=== PATIENT | female | born 1960 | race Caucasian/White ===

== ENCOUNTER 2016-06-18 10:50 | Observation (INO) | payer OTHER ==
[~2016-06-18] VITALS: Ht 177.8 cm; Wt 99.0 kg
[~2016-06-18 10:50] MED LIST: ASPI-484 PO; ATEN1TAB4 PO; ATEN25TA PO; ESTR2TAB PO; IBUP800T PO; PROG200C6 PO; SULF1TAB24 PO; THYR60TA PO
[2016-06-18] MEDS ORDERED: SODIUM CHLORIDE ONE (12:53)
[2016-06-18] MEDS ORDERED: POTASSIUM CHLORIDE ONE (12:53)
--- NOTE | 2016-06-18 13:00 | NUR ---
REPORT RECEIVED REPORT FROM DANISH. PT IN ROOM, SITTING IN BED AWAKE AND ALERT. ORIENTED TO ROOM AND TO UNIT. PT STATES PAIN IS AT A 0 WHEN LYING STILL BUT INCREASES TO A 10 WHEN MOVING. PAIN REPORTED GENERALIZED. FLUIDS OFFERED. VITAL SIGNS OBTAINED. EDUCATED ON USE OF CALL LIGHT. PT VERBALIZED UNDERSTANDING. WILL CONTINUE TO MONITOR. BED IN LOW POSITION, BRAKES ON, SIDE RAILS UP X2, CALL LIGHT WITHIN REACH.
[2016-06-18 13:10] VITALS: BP 139/88
[2016-06-18] MEDS ORDERED: [UNRECOGNIZED DRUG - OTHER] IV SCH (13:30)
[2016-06-18] MEDS: POTASSIUM CHLORIDE IV SCH (14:00)
[2016-06-18] MEDS: SODIUM CHLORIDE IV SCH (14:00)
[2016-06-18 14:04] LABS: BASOPHIL # 0.1 10^3/uL (0.0-0.1); BASOPHIL % 0.5 % (0.0-0.2); EOSINOPHIL # 0.3 10^3/uL (0.0-0.2); EOSINOPHIL % 3.2 % (0.0-5.0); HEMATOCRIT 41.2 % (36.0-46.0); HEMOGLOBIN 13.7 g/dL (12.0-15.0); LYMPHOCYTES # 2.5 10^3/uL (1.0-4.8); LYMPHOCYTES % 26.2 % (24.0-44.0); MEAN CELL HGB CONCENTRATION 33.3 g/dL (33-37); MEAN CORP VOLUME 90.4 fL (78-100); MONOCYTES # 0.6 10^3/uL (0.3-0.8); MONOCYTES % 6.3 % (5.0-12.0); NEUTROPHIL # 6.1 10^3/uL (1.8-7.7); NEUTROPHILS % 63.6 % (41.0-85.0); PLATELET COUNT 250 10^3/uL (150-400); RED BLOOD CELL 4.56 10^6/uL (4.00-5.20); RED CELL DISTRIBUTION WIDTH 13.5 % (11.5-14.5); WHITE BLOOD CELL 9.5 10^3/uL (4.5-11.0)
[2016-06-18 15:08] LABS: CREATINE KINASE MB 0.3 ng/mL (0.5-3.6)
[2016-06-18 15:53] LABS: ERYTHROCYTE SEDIMENTATION RATE 60 mm/hr (0-20)
--- NOTE | 2016-06-18 18:55 | NUR ---
Report Received report from Eriberto Ly RN
[2016-06-18 20:00] VITALS: BP 141/88
--- NOTE | 2016-06-18 21:42 | HPH ---
ADMIT DATE: 06/18/2016 The patient is being placed under observation to Med-Surg. PRIMARY CARE PHYSICIAN: June Quiñones MD The patient is being placed under observation to Med-Surg. ADMITTING DIAGNOSES: Polyarthritis with malaise and fatigue with hypothyroidism. CHIEF COMPLAINT: "I'm very sore and not feeling well." HISTORY OF PRESENT ILLNESS: The patient is a very pleasant 55-year-old female who has been feeling ill since February which is 4 months ago. She states that this all started with her left hip being inflamed and hurting. She could not bear weight, which turned out to have significant fluid where Dr. Longoria had to go and remove the lipoma and she had been on vancomycin treatments for a possible infection even though there were no cultures to prove an infection. She started using crutches for this and she started to have bilateral shoulder pains that were significant and then this progressed to bilateral knee pain. She had blood work done that showed her inflammatory markers were very elevated. Her sed rate was up to 130 and she has had radiology do a guided fluoroscopic procedure to drain her hip before within the past 2 months. With her polyarthritis going on and the migration in nature we are concerned about some kind of rheumatic condition. She had blood work done. Her rheumatoid factor was negative, but her JACQUI was equivocal at that time. She states that she still has significant hip pain with shoulder pain and knee pain. When asked about fever she states that her baseline temperature is 97, but she has been running 98.9 lately. She has been having chills and again she has been having significant joint aches and not feeling well. She states that she had some NSAIDs in the past and pain pills for which she cannot take anymore since she starts to have chest pains with them. She denies any abdominal pains currently, no chest pains currently, no shortness of breath, no diarrhea, no constipation, no lethargy, no syncope reported. PAST MEDICAL HISTORY: Significant for hypothyroidism, postmenopausal and hypertension. She had rheumatic problem, some type of rheumatic strep infections when she was young that were inadequately treated what I was told. ALLERGIES: CODEINE, PENICILLIN, MORPHINE, HYDROCODONE, CRESTOR, TRAMADOL AND VANCOMYCIN. SOCIAL HISTORY: Noncontributory. FAMILY HISTORY: Asked and noncontributory for this admission. MEDICATIONS: She is on include atenolol/HCT 100/25 daily, estradiol 2 mg daily, progesterone 200 mg at night and Walden Thyroid 60 mg a day. PHYSICAL EXAMINATION: VITAL SIGNS: On admission, temperature is 98.9, pulse rate 67, respirations 16 and blood pressure 139/88, O2 sats 98%. My physical exam is as follows: GENERAL: When I saw her she appeared tired. Oropharynx was clear. No ulcers noted. NECK: Supple, no JVD, no bruits. HEART: S1, S2 audible. Not tachycardic. LUNGS: Clear bilaterally. ABDOMEN: Good bowel sounds, soft abdomen, no rebound or guarding. EXTREMITIES: She had no significant joint effusions in her shoulders or knees, but she was tender when she bears weight on them. LABORATORY DATA: Labs were drawn. Her CBC was normal. Chemistry panel had a CK of 28, troponin was elevated at 0.07, but she is asymptomatic. CRP was 3.24. ProBNP was 89. ASSESSMENT: We have this female with polyarthritis that are migratory in nature with malaise and fatigue and elevated troponin. I will go ahead and draw serial cardiac enzymes on her. Her medart operator is Dr. Ruiz and she states that she has had stress test and heart caths by him before and the heart caths were normal. I will go ahead and get a bone scan on her tomorrow morning. I would start her on IV Solu-Medrol tonight with some Protonix and then follow her clinical course in the hospital. She will most probably need Rheumatology referral after this. June Quiñones MD DR: MICAH/charly JOB# [id number]
[2016-06-18] MEDS: SOLU-MEDROL IV SCH (22:48)
[2016-06-19] VITALS (7 sets, daily range): BP systolic 117–134; BP diastolic 74–88
[2016-06-19] MEDS: SODIUM CHLORIDE IV SCH ×2 (02:16→18:36)
[2016-06-19] MEDS: POTASSIUM CHLORIDE IV SCH ×2 (02:16→18:36)
[2016-06-19 05:38] LABS: BILIRUBIN,URINE NEGATIVE (NEGATIVE); PH,URINE 7 (5.0-6.0); UROBILINOGEN,URINE NORMAL (NEGATIVE)
[2016-06-19 05:45] LABS: APPEARANCE,URINE CLEAR (CLEAR); UA COLOR YELLOW (YELLOW)
[2016-06-19] MEDS: SOLU-MEDROL IV SCH ×3 (06:38→20:53)
--- NOTE | 2016-06-19 06:45 | NUR ---
Report Received report and assumed care of pt
--- NOTE | 2016-06-19 06:58 | NUR ---
Report Report given to Marcela Layton RN
[2016-06-19] MEDS ORDERED: ESTRACE PO SCH ×2 (09:00→21:00)
[2016-06-19] MEDS ORDERED: CHLORTHALIDONE PO SCH (09:00)
[2016-06-19] MEDS ORDERED: TENORMIN PO SCH (09:00)
[2016-06-19] MEDS ORDERED: ARMOUR THYROID PO SCH (09:00)
[2016-06-19] MEDS ORDERED: PROTONIX IV IV SCH (09:00)
--- NOTE | 2016-06-19 11:09 | NUR ---
DISCHARGE PLANNING: SS VISITED WITH PT CONCERNING DISCHARGE PLANNING NEEDS. PT LIVES HOME WITH HER . PT IS VERY INDEPENDENT AND DOES NOT USE ANY DME, BUT HAS IT IN THE HOME IF SHE NEEDS IT. NO FURTHER NEEDS WERE NOTED OR IDENTIFIED AT THIS TIME. PT SAFETY HANDOUT ADDRESSED, NO QUESTIONS ASKED, UNDERSTANDING VERBALIZED. SS TO CONTINUE TO FOLLOW AND MONITOR DISCHARGE PLANNING NEEDS.
[2016-06-19] MEDS ORDERED: PRED20TA PO (19:56)
--- NOTE | 2016-06-20 03:23 | DSH ---
DATE OF DISCHARGE: 06/19/2016 ADMITTING DIAGNOSES: Polyarthritis with malaise and fatigue, suspect serum negative rheumatoid arthritis. DISCHARGE DIAGNOSES: Polyarthritis with malaise and fatigue. HOSPITAL COURSE: The patient is a 55-year-old female who has had poly joint problems for the past 4 months now. She has been worked up and had injections and labs drawn. She does describe a polyarthritis that is migratory in nature and she could barely walk when she came into my clinic due to her pains in her hips, knees and shoulders. I went ahead and put her in the hospital and started her on Solu-Medrol 60 mg q.8 hours. Within 3 doses her clinical condition turned around, she is walking, she is feeling a lot better. Her polyarthritis is definitely improved and vital signs have been stable. Her rheumatoid factor was negative. So, I do suspect may be she has seronegative rheumatoid arthritis versus some type of connective tissue disorder, but at this time, she feels good. She definitely feels back to baseline. I will go ahead and put her on prednisone 40 mg a day for 4-5 more days and continue her home medications, home diet and home activity level and we will try to get her in to see a accounting teacher to evaluate her for the possibility of underlying connective tissue disorders and she is to follow up with me next week. My office staff will make the appointment. June Quiñones MD DR: MICAH/charly JOB# [id number]
--- NOTE | 2016-06-20 18:17 | DIREP ---
PROCEDURE:NM BONE SCAN TOTAL BODY/KIKE COMPARISON:[facility], , CHEST 1 VIEW, 04/18/2013, 09:34 PM. [facility], , XRAY PELVIS 1-2 VWS, 04/06/2015, 11:39 AM. [facility], , XRAY SPINE LUMBAR 2-3 VWS, 04/06/2015, 11:44 AM. [facility], US, SOFT TISSUE, 01/22/2016, 09:09 AM. [facility], , XRAY HIP MIN 2VW-RT, 03/26/2016, 12:28 PM. [facility], , XRAY HIP MIN 2VW-LT, 03/26/2016, 12:28 PM. INDICATIONS:polyarthralgia (hips,knees,shoulders) TECHNIQUE:After obtaining the patient's consent, Technetium 99m MDP was injected intravenously. Anterior and posterior whole body planar images were obtained approximately 5.5 hours later. PHARMACEUTICAL:Technetium 99m MDP, 26.9 mCi. FINDINGS: Distribution of radiotracer between the soft tissues and skeleton is within normal limits. Renal excretion appears symmetric. The mild/moderate degenerative activity seen involving the bilateral shoulders (right greater than left) bilateral sternoclavicular joints, bilateral knees, and bilateral tarsometatarsal joints. Mild degenerative activity is seen involving the thoracic and lumbar spine, bilateral hips, bilateral hands and wrists, and bilateral ankles. A small midline photopenic defect is seen within the lower lumbar spine on the posterior planar images, in keeping with multilevel lower laminectomy. No scintigraphic evidence of fracture or neoplasm. CONCLUSION: Scattered degenerative activity, most prominently involving the bilateral shoulders, sternoclavicular joints, knees, and tarsometatarsal joints. Dictated by: Carter Lomeli M.D. On 06/20/2016 at 06:11 PM
== END 2016-06-19 21:15 | disposition home or self-care (01) ==
LOC: MS 10:50
PROVIDERS: ADMIT Pediatrics; ATTEND Pediatrics
DX: M13.0 Polyarthritis, unspecified (principal); E03.9 Hypothyroidism, unspecified; R50.9 Fever, unspecified; I10 Essential (primary) hypertension; R74.8 Abnormal levels of other serum enzymes; R53.83 Other fatigue; R53.81 Other malaise; Z79.899 Other long term (current) drug therapy; Z98.890 Other specified postprocedural states
CPT/HCPCS: 36415 ×2; 78306; 82550; 83880; 84484 ×3; 85025; 85651; 86140; 87040 ×2; 93005; 96361 ×2; 96374; 96375; 96376; C9113; G0378 ×34; J2930 ×4; J7030 ×2; A9503

== ENCOUNTER → 2016-07-08 | Outpatient (CLI) | payer OTHER ==
[~2016-07-08] MED LIST changes: +PRED20TA PO
--- NOTE | 2016-07-08 11:30 | DIREP ---
PROCEDURE:MRI UPPER EXTREM JOINT W O CON RIGHT COMPARISON:None. INDICATIONS:RIGHT SHOULDER PAIN M25.511 TECHNIQUE:A variety of imaging planes and parameters were utilized for visualization of suspected pathology. Images were performed without contrast. FINDINGS: ROTATOR CUFF REGION CUFF TENDONS:Full-thickness tear of the mid and posterior supraspinatus tendon measures 2.4 cm in AP dimension was 2.9 cm of retraction. Infraspinatus tendinosis is mild. Teres minor tendon is intact. Mild subscapularis tendinosis. CUFF MUSCLES:There is edema within the infraspinatus muscle, supraspinatus muscle without visible tear. This may relate to the rotator cuff tear. Subscapularis and teres minor muscles are intact. DELTOID:Normal. No significant atrophy or tear. LONG BICEPS TENDON:Normal. No abnormal signal, attrition, or tear. LABRUM/BICEPS ANCHOR SUPERIOR:There is irregularity of the superficial margin of the superior labrum consistent with a shallow tear. ANTERIOR/INFERIOR:Normal. No visible tear or attrition. POSTERIOR:Normal. No posterior labrum abnormality. CAPSULE ANTERIOR/INFERIOR:Normal. No visible capsular laxity or thickening. POSTERIOR:Normal. No visible capsular laxity or thickening. AC JOINT REGION AC JOINT:Normal acromioclavicular joint. AC LIGAMENTS:Normal acromioclavicular ligament. CC LIGAMENTS:Normal coracoclavicular ligaments. ACROMION:Normal horizontal (Type I) configuration. SUBACROMIAL BURSA:Small amount of fluid in the bursa. HYALINE CARTILAGE:Normal. No visible cartilage narrowing or focal defect. OTHER BONES:Changes of enthesopathy at the greater tuberosity. Slight concavity at the posterior humeral head, correlate for previous dislocation. There is apparent screw track in the greater tuberosity. Correlate for previous rotator cuff repair. OTHER OBSERVATIONS:small joint effusion. CONCLUSION: 1. Full-thickness tear of the mid and posterior supraspinatus tendon measures 2.4 x 2.9 cm. 2. Mild infraspinatus and subscapularis tendinosis. 3. Superior labral superficial tear suspected. 4. Additional degenerative changes as detailed above. Dictated by: Justino Olsen M.D. on 07/08/2016 at 11:24 AM
== END | disposition home or self-care (01) ==
LOC: RAD 09:13
PROVIDERS: ATTEND Pediatrics
DX: M75.101 Unspecified rotator cuff tear or rupture of right shoulder, not specified as traumatic (principal); M25.411 Effusion, right shoulder
CPT/HCPCS: 73221-RT

== ENCOUNTER → 2016-11-18 | Outpatient (CLI) | payer OTHER ==
--- NOTE | 2016-11-18 15:43 | DIREP ---
COMPARISON:[facility], , CHEST 1 VIEW, 04/18/2013, 09:34 PM. INDICATIONS:CP FINDINGS: LUNGS/PLEURA:No significant pulmonary parenchymal abnormalities. No effusions. VASCULATURE:Normal. Unremarkable pulmonary vasculature. CARDIAC:Normal. No cardiac silhouette abnormality or cardiomegaly. MEDIASTINUM:Normal. No visible mass or adenopathy. BONES:Normal. No fracture or visible bony lesion. OTHER:Negative. CONCLUSION: No cardiopulmonary abnormality is identified. Dictated by: Jon Aguilar MD on 11/18/2016 at 03:41 PM
== END | disposition home or self-care (01) ==
LOC: RAD 15:14
PROVIDERS: ATTEND Pediatrics
DX: R07.9 Chest pain, unspecified (principal)
CPT/HCPCS: 71020

== ENCOUNTER → 2017-01-01 | Outpatient (CLI) | payer BC ==
[~2017-01-01] MED LIST changes: +IBUP-1131 PO; -IBUP800T PO; +PROG200C14 PO; -PROG200C6 PO
--- NOTE | 2017-01-01 13:23 | DIREP ---
PROCEDURE:US SOFT TISSUE COMPARISON:None. INDICATIONS:RT AXILLARY NODULE TECHNIQUE:Linear transducer images labeled "right axilla at patient palpable" FINDINGS:No lesions are identified. No adenopathy detected RIGHT AXILLA: No solid or cystic lesions identified. CONCLUSION:Limited ultrasound of the axilla right is not confirm an abnormality. Follow-up diagnostic mammogram recommended for all suspected axillary abnormalities Dictated by: MARIOA Physician on 01/01/2017 at 11:43 AM ac
== END | disposition home or self-care (01) ==
LOC: RAD 12:21
PROVIDERS: ATTEND Pediatrics
DX: R22.9 Localized swelling, mass and lump, unspecified (principal)
CPT/HCPCS: 76882

== ENCOUNTER → 2017-02-18 | Outpatient (CLI) | payer BC ==
--- NOTE | 2017-02-18 14:51 | DIREP ---
PROCEDURE:Digital Screening Mammogram TECHNIQUE:MLO, CC, and XCCL digital images of each breast are provided. Computer Assisted Detection (CAD) was utilized. COMPARISON:None. INDICATIONS:SCREENING BREAST COMPOSITION:The breasts are almost entirely fatty. FINDINGS:There are no grouped microcalcifications, masses, or architectural distortions to suggest malignancy. IMPRESSION:No mammographic evidence of malignancy. RECOMMENDATIONS:Routine Screening Mammography per [employer] guidelines. OVERALL FINAL ASSESSMENT:BI-RADS 2 - Benign Mammogram Note: This facility participates in a mammography screening patient reminder system. Dictated by: David Porras M.D. on 02/18/2017 at 02:49 PM
== END | disposition home or self-care (01) ==
LOC: RAD 13:00
PROVIDERS: ATTEND Pediatrics
DX: Z12.31 Encounter for screening mammogram for malignant neoplasm of breast (principal)
CPT/HCPCS: G0202; 77067

== ENCOUNTER → 2017-05-29 | Outpatient (CLI) | payer BC ==
--- NOTE | 2017-05-29 09:35 | DIREP ---
PROCEDURE:CHEST 2 VIEWS COMPARISON:[facility], CR, XRAY CHEST 2 VWS, 11/18/2016, 03:10 PM. INDICATIONS:FEVER, SOB, HX RA FINDINGS: LUNGS/PLEURA:No significant pulmonary parenchymal abnormalities. No effusions. VASCULATURE:Normal. Unremarkable pulmonary vasculature. CARDIAC:Normal. No cardiac silhouette abnormality or cardiomegaly. MEDIASTINUM:Normal. No visible mass or adenopathy. BONES:Mild degenerative disc disease and spondylosis without visible acute abnormalities. OTHER:Negative. CONCLUSION: 1. No acute disease. No significant change has occurred. Dictated by: Ovi Ellison MD on 05/29/2017 at 09:31 AM
== END | disposition home or self-care (01) ==
LOC: RAD 09:02
PROVIDERS: ATTEND Pediatrics
DX: R06.02 Shortness of breath (principal); R50.9 Fever, unspecified
CPT/HCPCS: 71046

== ENCOUNTER → 2017-07-02 | Outpatient (CLI) | payer BC ==
--- NOTE | 2017-07-02 14:42 | DIREP ---
PROCEDURE:XRAY HIP MIN 2VW-RT COMPARISON:[facility], [place], XRAY FEMUR 2 VWS-RT, 07/02/2017, 01:52 PM. [facility], [place], XRAY HIP MIN 2VW-RT, 03/26/2016, 12:28 PM. INDICATIONS:RIGHT HIP PAIN FINDINGS: BONES:Normal. JOINTS:Normal. SOFT TISSUES:Normal. OTHER:No additional findings. CONCLUSION:Normal examination. Dictated by: David Porras M.D. on 07/02/2017 at 02:41 PM
--- NOTE | 2017-07-02 14:43 | DIREP ---
PROCEDURE:XRAY FEMUR 2 VWS-RT COMPARISON:[facility], CR, XRAY HIP MIN 2VW-RT, 07/02/2017, 01:52 PM. [facility], CR, XRAY HIP MIN 2VW-RT, 03/26/2016, 12:28 PM. INDICATIONS:RIGHT FEMUR PAIN FINDINGS: BONES:Normal. JOINTS:Normal. SOFT TISSUES:Normal. OTHER:No additional findings. CONCLUSION:Normal examination. Dictated by: David Porras M.D. on 07/02/2017 at 02:42 PM
== END | disposition home or self-care (01) ==
LOC: RAD 13:51
PROVIDERS: ATTEND Pediatrics
DX: M79.651 Pain in right thigh (principal); M25.551 Pain in right hip
CPT/HCPCS: 73502; 73552; 73550-RT

== ENCOUNTER 2017-07-04 17:00 | Emergency (ER) | payer BC ==
[~2017-07-04] VITALS: Ht 175.3 cm; Wt 102.1 kg
[2017-07-04 17:09] VITALS: BP 164/88
--- NOTE | 2017-07-04 17:14 | PCM.EKG ---
[facility] Test Date: 2017-07-04 Test Time: 17:08:43 Pat Name: STEVE LONGORIA Department: Room: Gender: F [employer]: EDI : 1960 Requested By: STONEY TORRES Order Number: [id number] Reading MD: Measurements Intervals Adams Rate: 71 P: 38 AL: 192 QRS: 36 QRSD: 100 T: 33 QT: 420 QTc: 456 Interpretive Statements Normal sinus rhythm Normal ECG No previous ECG available for comparison Please click the below link to view image of tracing.
[2017-07-04 17:24] LABS: BASOPHIL % 0.3 % (0.0-0.2); EOSINOPHIL # 0.2 10^3/uL (0.0-0.2); EOSINOPHIL % 1.9 % (0.0-5.0); HEMOGLOBIN 15.1 g/dL (12.0-15.0); LYMPHOCYTES # 2.2 10^3/uL (1.0-4.8); LYMPHOCYTES % 19.8 % (24.0-44.0); MEAN CELL HGB 30.6 pg (26-34); MEAN CELL HGB CONCENTRATION 34.2 g/dL (33-37); MEAN CORP VOLUME 89.5 fL (78-100); MEAN PLATELET VOLUME 9.5 fL (7.8-11.0); MONOCYTES # 1.2 10^3/uL (0.3-0.8); MONOCYTES % 10.5 % (5.0-12.0); NEUTROPHIL # 7.4 10^3/uL (1.8-7.7); NEUTROPHILS % 67.3 % (41.0-85.0); RED CELL DISTRIBUTION WIDTH 12.5 % (11.5-14.5)
[2017-07-04 17:45] LABS: ALANINE AMINOTRANSFERASE(ML) 33 U/L (12-78); ALKALINE PHOSPHATASE 51 U/L (50-136); ASPARTATE AMINO TRANSFERASE 15 U/L (0-35); CALCIUM 9.3 mg/dL (8.4-10.5); GLUCOSE 145 mg/dL (70-110)
[2017-07-04] MEDS ORDERED: POTASSIUM CHLORIDE PO STA (17:53)
--- NOTE | 2017-07-04 17:54 | DIREP ---
PROCEDURE:CHEST 1 VIEW COMPARISON:[facility], CR, XRAY CHEST 2 VWS, 05/29/2017, 09:05 AM. [facility], CR, XRAY CHEST 2 VWS, 11/18/2016, 03:10 PM. INDICATIONS:CP FINDINGS: LUNGS/PLEURA:No significant pulmonary parenchymal abnormalities. No effusions. VASCULATURE:Normal. Unremarkable pulmonary vasculature. CARDIAC:Normal. No cardiac silhouette abnormality or cardiomegaly. MEDIASTINUM:Normal. No visible mass or adenopathy. BONES:Normal. No fracture or visible bony lesion. OTHER:EKG leads overlie the chest. CONCLUSION:No acute cardiopulmonary findings. Dictated by: Justino Olsen M.D. on 07/04/2017 at 05:52 PM
--- NOTE | 2017-07-04 18:00 | NUR ---
Ankush Montes on phone with Dr. Lechuga
[2017-07-04] MEDS ORDERED: NITROSTAT SL STA (18:02)
--- NOTE | 2017-07-04 18:09 | NUR ---
CAL Montes left message with Dr. Ingram
[2017-07-04] MEDS ORDERED: KLOR-CON 10 PO ONE (18:24)
--- NOTE | 2017-07-04 18:25 | NUR ---
CAL ON PHONE WITH DR. MCCALL
[2017-07-04] MEDS ORDERED: NS 1000ML 1,000 ML ONE (18:33)
[2017-07-04 18:37] VITALS: BP 82/44
--- NOTE | 2017-07-04 18:50 | NUR ---
SOCO TORRES ON PHONE WITH SOCO
--- NOTE | 2017-07-04 18:55 | ER.PDOC ---
General Chief Complaint: Chest Pain-Cardiac Nature Stated Complaint: CHEST PAIN Time seen by MD: 19:00 Source: patient Exam Limitations: no limitations History of Present Illness Timing/Duration: 4-6 hours Severity/Quality: moderate Radiation: no radiation Associated Symptoms: nausea/vomiting Exacerbated by: nothing Relieved By: other Allergies: Coded Allergies: codeine (Verified Allergy, Severe, "FEELS LIKE I WAS HAVING A HEART ATTACK ", 03/28/16) gluten (Verified Allergy, Severe, MIGRAINES, 03/28/16) morphine (Verified Allergy, Severe, "FELT LIKE I WAS HAVING A HEART ATTACK ", 03/28/16) Penicillins (Verified Allergy, Unknown, unknown, 04/23/16) hydrocodone (Verified Allergy, Unknown, 03/28/16) rosuvastatin (Verified Allergy, Unknown, MUSCLE WEEKNESS, 03/28/16) tramadol (Verified Allergy, Unknown, 03/28/16) vancomycin (Unverified Adverse Reaction, Severe, 05/15/16) DIZZINESS, SOB, Uncoded Allergies: SOUTH (Allergy, Severe, 05/20/16) FEELS LIKE GIVING HEART ATTACK PAIN MEDICATION (Adverse Reaction, Severe, 05/15/16) MAKES HER FEEL LIKE SHE IS HAVING A HEART ATTACK Home Meds Active Scripts Prednisone (PREDNISONE) 20 Mg Tablet, 40 MG PO DAILY, #10 TAB 0 Refills Prov:VIRGIL LALA MD 06/19/16 Reported Medications Atenolol/Chlorthalidone (ATENOLOL-CHLORTHALIDONE 100-25) 1 Each Tablet, 1 TAB PO DAILY, #30 TAB 5 Refills 03/28/16 Estradiol (ESTRADIOL) 2 Mg Tablet, 1 TAB PO DAILY, #90 TAB 1 Refill 03/28/16 Progesterone,Micronized (PROMETRIUM) 200 Mg Capsule, 1 CAP PO HS, #90 CAP 3 Refills 03/28/16 Thyroid,Pork (ARMOUR THYROID) 60 Mg Tablet, 1 TAB PO DAILY, #30 TAB 5 Refills 03/28/16 Aspirin (ASPIR 81) 81 Mg Tablet.dr, 1 TAB PO DAILY, #30 TAB 5 Refills 03/28/16 Vital Signs First Vital Signs Date Time Temp Pulse Resp B/P (MAP) Pulse Ox O2 Delivery O2 Flow Rate FiO2 07/04/17 17:06 99.6 70 17 95 Room Air 07/04/17 17:09 164/88 (113) Last Vital Signs Date Time Temp Pulse Resp B/P (MAP) Pulse Ox O2 Delivery O2 Flow Rate FiO2 07/04/17 17:09 99.6 70 17 164/88 (113) 95 Room Air Past Medical History Medical History: hypertension Surgical History: appendectomy, back, cholecystectomy, , hip, hysterectomy LMP (females 10-50): hysterectomy Social History Smoking: non-smoker Alcohol Use: none Drug Use: none All Other Systems: Reviewed and Negative Physical Exam General Appearance: No Apparent Distress, WD/WN HEENT: PERRL/EOMI, Normal ENT Inspection, TMs Normal, Pharynx Normal Neck: Non-Tender, Full Range of Motion, Supple, Normal Inspection Respiratory: chest non-tender, lungs clear, normal breath sounds, no respiratory distress, no accessory muscle use Cardiovascular: Normal Peripheral Pulses, Regular Rate, Rhythm, No Edema, No Gallop, No JVD, No Murmur Back: Normal Inspection, No CVA Tenderness, No Vertebral Tenderness Extremities: Normal Range of Motion, Non-Tender, Normal Inspection, No Pedal Edema, No Calf Tenderness, Normal Capillary Refill, Pelvis Stable Neurologic/Psychiatric: crop farmers II-XII NML as Tested, No Motor/Sensory Deficits, Alert, Normal Mood/Affect, Oriented x 3 Skin: Normal Color, Warm/Dry Lymphatic: No Adenopathy Results/Orders Results/Orders Laboratory Tests Test 07/04/17 17:05 White Blood Count 11.0 10^3/uL (4.5-11.0) Red Blood Count 4.94 10^6/uL (4.00-5.20) Hemoglobin 15.1 g/dL (12.0-15.0) Hematocrit 44.2 % (36.0-46.0) Mean Corpuscular Volume 89.5 fL (78-100) Mean Corpuscular Hemoglobin 30.6 pg (26-34) Mean Corpuscular Hemoglobin Concent 34.2 g/dL (33-37) Red Cell Distribution Width 12.5 % (11.5-14.5) Platelet Count 139 10^3/uL (150-400) Mean Platelet Volume 9.5 fL (7.8-11.0) Neutrophils (%) (Auto) 67.3 % (41.0-85.0) Lymphocytes (%) (Auto) 19.8 % (24.0-44.0) Monocytes (%) (Auto) 10.5 % (5.0-12.0) Neutrophils # (Auto) 7.4 10^3/uL (1.8-7.7) Lymphocytes # (Auto) 2.2 10^3/uL (1.0-4.8) Monocytes # (Auto) 1.2 10^3/uL (0.3-0.8) Absolute Immature Granulocyte (auto 0.02 10^3 u/L (0-2) Eosinophils % 1.9 % (0.0-5.0) Basophils % 0.3 % (0.0-0.2) Basophils # 0.0 10^3/uL (0.0-0.1) Eosinophil Count 0.2 10^3/uL (0.0-0.2) Prothrombin Time 9.8 SEC (9.8-11.9) Prothrombin Time INR (Non-Therap) 1.0 Activated Partial Thromboplast Time 25.4 SEC (24.67-30.72) D-Dimer 0.68 mg/L (0.19-0.49) Sodium Level 135 mmol/L (132-145) Potassium Level 2.9 mmol/L (3.6-5.2) Chloride Level 98.0 mmol/L (96-109) Carbon Dioxide Level 27.0 mmol/L (20.0-32) Anion Gap 12.9 Blood Urea Nitrogen 11 mg/dL (7-18) Creatinine 0.93 mg/dL (0.59-1.40) Estimated GFR () 75.5 (>/=60) BUN/Creatinine Ratio 11.0 Glucose Level 145 mg/dL (70-110) Calcium Level 9.3 mg/dL (8.4-10.5) Total Bilirubin 0.5 mg/dL (0.2-1.0) Aspartate Amino Transf (AST/SGOT) 15 U/L (0-35) Alanine Aminotransferase (ALT/SGPT) 33 U/L (12-78) Alkaline Phosphatase 51 U/L (50-136) Total Creatine Kinase 46 U/L (26-192) Creatine Kinase MB < 0.5 ng/mL (0.5-3.6) Troponin I 0.08 ng/mL (0.00-0.05) Pro-B-Type Natriuretic Peptide 278 pg/mL (0-125) Total Protein 7.3 g/dL (6.4-8.2) Albumin 3.4 g/dL (3.4-5.0) Globulin 3.9 Percent Immature Gran (Cell Imm) 0.20 % (0.00-0.50) Helicobacter pylori Screen NEGATIVE (NEGATIVE) Administered Medications Medications (Trade) Dose Ordered Sig/Pierre Route PRN Reason Start Time Stop Time Status Last Admin Dose Admin Potassium Chloride (Potassium Chloride) 40 meq STAT STAT PO 07/04/17 17:53 07/04/17 17:54 DC 07/04/17 18:30 Nitroglycerin (Nitrostat) 0.4 mg STAT STAT SL 07/04/17 18:02 07/04/17 18:03 DC 07/04/17 18:30 EKG/XRAY/CT/US EKG: NSR, nonspecific ST T wave chg Consult/PCP Time Consult/PCP Called: 19:00 Consult/PCP: VON STOVER Course Blood Pressure Systolic: 164 Blood Pressure Diastolic: 88 Blood Pressure Mean: 113 Departure Time of Disposition: 19:33 Disposition: 70 DISC/XFER TO ANOTH TYP HLTH Impression: Primary Impression: Angina pectoris Condition: Improved Referrals: VIRGIL ALLA MD (PCP) PRIMARY CARE PROVIDER Duration or Time Spent with Pa: 2 HRS STONEY TORRES MD Jul 04, 2017 18:55
[2017-07-04] MEDS ORDERED: SUBLIMAZE IV STA (18:57)
[2017-07-04] MEDS ORDERED: SUBLIMAZE ONE (19:34)
[2017-07-04 19:45] VITALS: BP 124/74
--- NOTE | 2017-07-04 19:55 | NUR ---
[facility] at patients bedside
--- NOTE | 2017-07-04 19:59 | NUR ---
REPORT Report given to Lyn from [facility]
== END 2017-07-04 19:58 | disposition other institution (70) ==
LOC: ER 17:00
DX: I20.9 Angina pectoris, unspecified (principal); I10 Essential (primary) hypertension; Z79.82 Long term (current) use of aspirin; Z88.0 Allergy status to penicillin; Z88.1 Allergy status to other antibiotic agents; Z88.5 Allergy status to narcotic agent; Z90.49 Acquired absence of other specified parts of digestive tract; Z90.710 Acquired absence of both cervix and uterus
CPT/HCPCS: 36415; 71045; 80053; 82550; 82553; 83880; 84484; 85025; 85379; 85610; 85730; 86677; 93005; 96374; 99285; J3010; J3480; J7030

== ENCOUNTER → 2018-03-09 | Outpatient (CLI) | payer BC ==
[2018-03-09 16:57] LABS: BASOPHIL % 0.2 % (0.0-0.2); EOSINOPHIL # 0.1 10^3/uL (0.0-0.2); EOSINOPHIL % 1.3 % (0.0-5.0); HEMOGLOBIN 15.3 g/dL (12.0-15.0); LYMPHOCYTES # 2.3 10^3/uL (1.0-4.8); LYMPHOCYTES % 23.9 % (24.0-44.0); MEAN CELL HGB 30.5 pg (26-34); MEAN CELL HGB CONCENTRATION 33.5 g/dL (33-37); MEAN CORP VOLUME 91.2 fL (78-100); MEAN PLATELET VOLUME 8.8 fL (7.8-11.0); MONOCYTES # 0.8 10^3/uL (0.3-0.8); MONOCYTES % 8.8 % (5.0-12.0); NEUTROPHIL # 6.3 10^3/uL (1.8-7.7); NEUTROPHILS % 65.5 % (41.0-85.0); RED CELL DISTRIBUTION WIDTH 12.5 % (11.5-14.5); WHITE BLOOD CELL 9.6 10^3/uL (4.5-11.0)
--- NOTE | 2018-03-09 17:01 | DIREP ---
PROCEDURE:CHEST 2 VIEWS COMPARISON:[facility], CR, XRAY CHEST SINGLE VW, 07/04/2017, 05:24 PM. INDICATIONS:SOB, COUGH PERSISTANT 3 WKS FINDINGS: LUNGS/PLEURA:Lungs are clear of focal consolidation. No evidence of pleural effusion. VASCULATURE:Unremarkable pulmonary vasculature. CARDIAC:No cardiac silhouette abnormality or cardiomegaly. JAKOB/MEDIASTINUM:No visible mass or adenopathy. BONES:No acute fracture. OTHER:No additional findings. CONCLUSION: 1. No acute cardiopulmonary changes. Dictated by: Delvin Powell M.D. on 03/09/2018 at 04:59 PM
[2018-03-09 17:18] LABS: CALCIUM 9.6 mg/dL (8.4-10.5); CARBON DIOXIDE 32.8 mmol/L (20.0-32)
== END | disposition home or self-care (01) ==
LOC: RAD 16:36
PROVIDERS: ATTEND Nurse Practitioner Family
DX: R05 Cough (principal); R06.02 Shortness of breath
CPT/HCPCS: 36415; 71046; 80053; 85025

== ENCOUNTER → 2018-03-26 | Outpatient (CLI) | payer BC ==
[2018-03-26 12:05] LABS: BASOPHIL % 0.3 % (0.0-0.2); EOSINOPHIL # 0.2 10^3/uL (0.0-0.2); EOSINOPHIL % 1.9 % (0.0-5.0); HEMOGLOBIN 14.5 g/dL (12.0-15.0); LYMPHOCYTES # 2.5 10^3/uL (1.0-4.8); LYMPHOCYTES % 31.6 % (24.0-44.0); MEAN CELL HGB 30.6 pg (26-34); MEAN CELL HGB CONCENTRATION 33.3 g/dL (33-37); MEAN PLATELET VOLUME 8.4 fL (7.8-11.0); MONOCYTES # 0.5 10^3/uL (0.3-0.8); MONOCYTES % 6.9 % (5.0-12.0); NEUTROPHIL # 4.6 10^3/uL (1.8-7.7); RED CELL DISTRIBUTION WIDTH 12.3 % (11.5-14.5); WHITE BLOOD CELL 7.8 10^3/uL (4.5-11.0)
[2018-03-26 12:29] LABS: CALCIUM 9.3 mg/dL (8.4-10.5); CARBON DIOXIDE 29.2 mmol/L (20.0-32)
== END | disposition home or self-care (01) ==
LOC: LAB 11:51
PROVIDERS: ATTEND Internal Medicine Rheumatology
DX: M05.89 Other rheumatoid arthritis with rheumatoid factor of multiple sites (principal)
CPT/HCPCS: 36415; 80053; 85025; 85651; 86140

== ENCOUNTER → 2018-09-15 | Outpatient (CLI) | payer BC ==
[2018-09-15 11:54] LABS: BASOPHIL % 0.3 % (0.0-0.2); EOSINOPHIL # 0.1 10^3/uL (0.0-0.2); EOSINOPHIL % 1.9 % (0.0-5.0); HEMOGLOBIN 15.6 g/dL (12.0-15.0); LYMPHOCYTES # 1.9 10^3/uL (1.0-4.8); LYMPHOCYTES % 29.1 % (24.0-44.0); MEAN CELL HGB 31.5 pg (26-34); MEAN CELL HGB CONCENTRATION 34.8 g/dL (33-37); MEAN CORP VOLUME 90.3 fL (78-100); MONOCYTES # 0.7 10^3/uL (0.3-0.8); MONOCYTES % 10.8 % (5.0-12.0); NEUTROPHIL # 3.7 10^3/uL (1.8-7.7); NEUTROPHILS % 57.7 % (41.0-85.0); RED CELL DISTRIBUTION WIDTH 12.4 % (11.5-14.5); WHITE BLOOD CELL 6.4 10^3/uL (4.5-11.0)
[2018-09-15 12:26] LABS: CALCIUM 9.3 mg/dL (8.4-10.5); CARBON DIOXIDE 27.8 mmol/L (20.0-32)
== END | disposition home or self-care (01) ==
LOC: LAB 11:35
PROVIDERS: ATTEND Internal Medicine Rheumatology
DX: M06.09 Rheumatoid arthritis without rheumatoid factor, multiple sites (principal); I10 Essential (primary) hypertension
CPT/HCPCS: 36415; 80053; 85025; 85651; 86140

== ENCOUNTER → 2019-02-23 | Outpatient (CLI) | payer BC ==
--- NOTE | 2019-02-25 08:48 | DIREP ---
PROCEDURE:Digital Screening Mammogram TECHNIQUE:MLO, CC, and XCCL digital images of each breast are provided. Computer Assisted Detection (CAD) was utilized. COMPARISON:[facility], , MAMMO BILATERAL SCREENING, 02/18/2017, 01:41 PM. INDICATIONS:SCREENING BREAST COMPOSITION:The breasts are almost entirely fatty. FINDINGS:There are no grouped microcalcifications, masses, or architectural distortions to suggest malignancy. There is no significant change as compared with the previous examination(s). IMPRESSION:No mammographic evidence of malignancy. RECOMMENDATIONS:Routine Screening Mammography per [employer] guidelines. OVERALL FINAL ASSESSMENT:BI-RADS 2 - Benign Mammogram Note: This facility participates in a mammography screening patient reminder system. Dictated by: David Porras M.D. on 02/25/2019 at 08:45 AM
== END | disposition home or self-care (01) ==
LOC: RAD 11:29
PROVIDERS: ATTEND Pediatrics
DX: Z12.31 Encounter for screening mammogram for malignant neoplasm of breast (principal); N64.89 Other specified disorders of breast
CPT/HCPCS: 77067

== ENCOUNTER → 2019-06-23 | Outpatient (CLI) | payer BC ==
[2019-06-23 08:45] LABS: MEAN CORP HGB 31.1 pg (26-34)
--- NOTE | 2019-06-23 08:54 | DIREP ---
PROCEDURE:CHEST 2 VIEWS COMPARISON:[facility], CR, XRAY CHEST 2 VWS, 03/09/2018, 04:31 PM. INDICATIONS:COUGH, SOB FINDINGS: LUNGS/PLEURA:No significant pulmonary parenchymal abnormalities. No effusions. VASCULATURE:Normal. Unremarkable pulmonary vasculature. CARDIAC:Normal. No cardiac silhouette abnormality or cardiomegaly. MEDIASTINUM:Normal. No visible mass or adenopathy. BONES:Degenerative changes of the spine. No acute abnormality. OTHER:Negative. CONCLUSION:Stable chest without acute cardiopulmonary abnormality. Dictated by: Carter Ingram M.D. on 06/23/2019 at 08:48 AM
[2019-06-23 09:01] LABS: CALCIUM 8.6 mg/dL (8.4-10.5); CARBON DIOXIDE 31.4 mmol/L (20.0-32)
== END | disposition home or self-care (01) ==
LOC: LAB 08:27
PROVIDERS: ATTEND Nurse Practitioner Family
DX: R05 Cough (principal); R06.02 Shortness of breath; M47.819 Spondylosis without myelopathy or radiculopathy, site unspecified
CPT/HCPCS: 36415; 71046; 80053; 85027

== ENCOUNTER → 2019-10-15 | Outpatient (CLI) | payer BC ==
[~2019-10-15] MED LIST changes: -ASPI-484 PO; +ASPI-485 PO
[2019-10-15 10:04] LABS: CALCIUM 8.4 mg/dL (8.4-10.5); CARBON DIOXIDE 29.3 mmol/L (20.0-32)
== END | disposition home or self-care (01) ==
LOC: LAB 09:15
PROVIDERS: ATTEND Internal Medicine Cardiovascular Disease
DX: I10 Essential (primary) hypertension (principal); R06.02 Shortness of breath
CPT/HCPCS: 36415; 80053; 80061; 80076

== ENCOUNTER → 2019-11-18 | Outpatient (CLI) | payer BC ==
[2019-11-18 09:43] LABS: BASOPHIL % 0.4 % (0.0-0.2); EOSINOPHIL # 0.1 10^3/uL (0.0-0.2); EOSINOPHIL % 2.4 % (0.0-5.0); LYMPHOCYTES # 2.15 10^3/uL1 (1.0-4.8); LYMPHOCYTES % 39.2 % (24.0-44.0); MEAN CORP HGB 31.7 pg (26-34); MONOCYTES # 0.5 10^3/uL (0.3-0.8); MONOCYTES % 9.7 % (5.0-12.0); NEUTROPHIL # 2.7 10^3/uL (1.8-7.7); NEUTROPHILS % 48.1 % (41.0-85.0); PLATELET COUNT 216 10^3/uL (150-400); RED CELL DISTRIBUTION WIDTH 13.1 % (11.5-14.5)
[2019-11-18 10:00] LABS: CALCIUM 8.9 mg/dL (8.4-10.5); CARBON DIOXIDE 30.4 mmol/L (20.0-32)
== END | disposition home or self-care (01) ==
LOC: LAB 09:30
PROVIDERS: ATTEND Internal Medicine Rheumatology
DX: M06.09 Rheumatoid arthritis without rheumatoid factor, multiple sites (principal); R76.8 Other specified abnormal immunological findings in serum
CPT/HCPCS: 36415; 80053; 85025; 85651; 86140

== ENCOUNTER → 2019-12-22 | Outpatient (CLI) | payer BC ==
[2019-12-22 09:47] LABS: CALCIUM 8.7 mg/dL (8.4-10.5); CARBON DIOXIDE 29.5 mmol/L (20.0-32)
== END | disposition home or self-care (01) ==
LOC: LAB 09:12
PROVIDERS: ATTEND Internal Medicine Cardiovascular Disease
DX: I10 Essential (primary) hypertension (principal)
CPT/HCPCS: 36415; 80048